=== PATIENT | female | born 1940 | race Caucasian/White ===

== ENCOUNTER → 2017-09-22 | Outpatient (CLI) | payer MEDICARE, BC ==
[~2017-09-22] MED LIST: CALCIUM CARBON500 MG PO; CENTRUM SILVER1 EAC3 PO; DICYCLOMINE HCL10 MG PO; ECOTRIN81 MG PO; FISH OIL 1,0001 EAC2 PO; HYDROCHLOROTHIA25 MG PO; LOSARTAN POTAS100 MG PO; METOPROLOL SUCC50 MG PO; NEXIUM20 M1 PO; VIT D3 PO
--- NOTE | 2017-09-22 10:28 | Diagnostic Imaging Report ---
PROCEDURE: CT ABDOMEN AND PELVIS WITHOUT CONTRAST TECHNIQUE: The abdomen and pelvis were scanned utilizing a multidetector helical scanner from the diaphragm to the lesser trochanter. Oral contrast was administered. No IV contrast was administered as per physician request. Coronal and sagittal multiplanar reformations were obtained. COMPARISON: None. INDICATIONS: ABDOMINAL PAIN FINDINGS: ABSENCE OF INTRAVENOUS CONTRAST DECREASES SENSITIVITY FOR DETECTION OF FOCAL LESIONS AND VASCULAR PATHOLOGY. LOWER THORAX: Normal. HEPATOBILIARY: No focal hepatic lesions. No biliary ductal dilatation. SPLEEN: No splenomegaly. PANCREAS: No focal masses or ductal dilatation. ADRENALS: The adrenal glands are prominent bilaterally, series 2 images 19 and series 301 image 57. KIDNEYS/URETERS: 2.6 cm calculus is present in the interpolar region of the left kidney. No hydronephrosis, obstructing calculi, or solid mass lesions. PELVIC ORGANS/BLADDER: Normal uterus and ovaries. PERITONEUM / RETROPERITONEUM: No free air or fluid. LYMPH NODES: No lymphadenopathy. VESSELS: Atherosclerotic calcifications. GI TRACT: No distention or wall thickening. The appendix is normal. Moderate amount of retained feces limits the intraluminal evaluation of the colon. BONES AND SOFT TISSUES: Unremarkable. IMPRESSION: 1. Nonobstructing left nephrolithiasis. 2. Indeterminate prominence of the bilateral adrenal glands. CT abdomen with adrenal mass protocol may provide additional information for further characterization. Dictated by: Ger Valdez M.D. on 09/22/2017 at 10:27 Electronically approved by: Ger Valdez M.D. on 09/22/2017 at 10:27
== END ==
LOC: CT 07:20
PROVIDERS: ATTEND Internal Medicine Gastroenterology
DX: R10.9 Unspecified abdominal pain (principal)
CPT/HCPCS: 74176

== ENCOUNTER → 2018-03-24 | Outpatient (CLI) | payer MEDICARE, BC ==
--- NOTE | 2018-03-24 17:37 | Diagnostic Imaging Report ---
EXAMINATION: Right Hip Films CLINICAL HISTORY:Right hip pain COMPARISON: None. DISCUSSION: The bones are well-mineralized. No acute, displaced fractures or dislocations. Joint spaces are relatively well-preserved. No osteolytic or osteoblastic lesions. Soft tissues are unremarkable. IMPRESSION: 1. Essentially unremarkable hip films Signed by: Dr. Mikel Salamanca M.D. on 03/24/2018 5:34 PM
== END ==
LOC: RAD 16:36
PROVIDERS: ATTEND Family Medicine
DX: M25.551 Pain in right hip (principal)